=== PATIENT | female | born 1985 | race Caucasian/White ===

== ENCOUNTER 2017-12-15 15:06 | Day surgery (SDC) | payer OTHER ==
[2017-12-15 15:47] VITALS: BMI 30.4
[2017-12-15 15:55] VITALS: BP 127/80; TEMP 98.7
--- NOTE | 2017-12-15 16:43 | PDOC.LDHP ---
Labor and Delivery H&P Chief complaint: decreased movement HPI: 31 y/o at 34w4d, patient of Dr. Puckett, presents for decreased FM. Patient felt like her baby has been moving less today. 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 Denies VB, lof, ctx or other concerns. Since arrival to triage, has felt a lot of movement. ROS neg for HEENT, CV, pulm, GI, , neuro, psych, skin, musculoskeletal, or constitutional symptoms other than mentioned above. OB History Details: 1 prior term forceps vaginal delivery Current complications: none Past Medical History: None Current medications: pre-brenda vitamins Previous surgical history: none Allergies/Adverse Reactions: Allergies Allergy/AdvReac Type Severity Reaction Status Date / Time No Known Allergies Allergy Unverified 05/09/14 16:13 Social history: none - Physical Exam Vital signs reviewed and normal: yes General: NAD, resting Lungs: nonlabored breathing Abdomen: gravid Extremeties: no edema FHT: category 1 (150s, mod variability, + accels, no decels) Lead contractions every: None - Assessment 31 y/o at 34w4d with reassuring status and reactive NST. Now feeling movement. - Plan -: D/c home with precautions. Advised to keep all appointments.
== END 2017-12-15 16:27 | disposition home or self-care (01) ==
LOC: L&D/OP 15:06
PROVIDERS: ATTEND Obstetrics & Gynecology
DX: O36.8130 Decreased fetal movements, third trimester, not applicable or unspecified (principal); Z3A.34 34 weeks gestation of pregnancy
CPT/HCPCS: 59025; 99282

== ENCOUNTER 2018-01-17 21:00 | Inpatient (IN) | payer OTHER ==
[2018-01-17 21:58] VITALS: BMI 31.9
[2018-01-17] MEDS ORDERED: Ondansetron PF 4 MG/2 ML Vial IVP PRN (22:17)
[2018-01-17] MEDS ORDERED: Lactated Ringer's 1,000 ML IV PRN (22:17)
[2018-01-17] MEDS ORDERED: Butorphanol Tartrate 1 MG/ML VIAL SLOW IVP PRN (22:17)
[2018-01-17] MEDS ORDERED: Zolpidem Tartrate 5 MG TAB PO PRN (22:17)
[2018-01-17] MEDS ORDERED: Promethazine HCl 25 MG/ML VIAL IM PRN (22:17)
[2018-01-17] MEDS ORDERED: Misoprostol 100 MCG TAB VAG PRN (22:21)
[2018-01-17] MEDS: Lactated Ringer's 1,000 ML IV SCH (22:30)
[2018-01-17] MEDS ORDERED: NS w/ Oxytocin 10 units 500 ML IVPB SCH (22:30)
[2018-01-17] MEDS: Misoprostol 100 MCG TAB VAG SCH ×2 (22:55→22:56)
[2018-01-17 22:56] LABS: Hemoglobin 11.4 g/dL (12.0-16.0); Mean Corpuscular HGB CONC 32.2 g/dL (32.0-36.0); Mean Corpuscular Hemoglobin 26.3 pg (27.0-31.0); Mean Corpuscular Volume 81.9 fL (78.0-98.0); Mean Platelet Volume 9.4 fL (7.4-10.4); Platelet Count 219 thou/uL (130-400); RBC Distribution Width 14.4 % (11.5-14.5); Red Blood Cell (RBC) Count 4.33 mill/uL (4.20-5.40); White Blood Cell (WBC) Count 9.4 thou/uL (4.8-10.8)
[2018-01-17] MEDS ORDERED: Penicillin G Potassium 5 MILL.UNITS in Sodium Chloride 0.9% 100 ML IVPB SCH (23:00)
[2018-01-17 23:35] LABS: HBSAg Index 0.18 S/CO (0-0.99); Hep B Surf Ag Non-Reactive S/CO (NonReactive); Syphilis Antibody Nonreactive (Nonreactive); Syphilis Antibody Index 0.07 S/CO (<1.00 Non-Reactive)
--- NOTE | 2018-01-18 02:13 | PDOC.LDHP ---
Labor and Delivery H&P Chief complaint: scheduled induction Current gestational age (weeks): 39 Dating criteria: last menstrual period Grav: 2 Para: 1 Current complications: other ( pelvic kidney. Normal interval growth and MORIS checks.) Abnormal US findings: Yes ( pelvic kidney) Current medications: pre- vitamins Allergies/Adverse Reactions: Allergies Allergy/AdvReac Type Severity Reaction Status Date / Time No Known Allergies Allergy Verified 01/17/18 21:59 Social history: none - Physical Exam Vital signs reviewed and normal: yes General: resting Heart: RRR Lungs: nonlabored breathing Abdomen: gravid Extremeties: trace edema - Vaginal Exam cm dilated: 2 Effacement: 50% Station: -1 - OB Labs Blood type: A RH: positive Antibody Screen: negative HIV: negative RPR: negative HEPSAg: negative 1 hour GCT: negative GBS: positive Urine drug screen: not done Rubella: immune - Assessment L&D Assessment: elective induction at term - Plan Plan: admit to L&D, cervical ripening, labor augmentation if indicated, GBS antibiotic prophylaxis
[2018-01-18] MEDS ORDERED: Penicillin G Potassium 5 MILL.UNITS VIAL ONE (05:23)
[2018-01-18] MEDS ORDERED: Fentanyl 4 mcg/Bup 0.1% Cadd 100 ML ONE (08:45)
[2018-01-18] MEDS: Penicillin G 2.5 MILL.units 50 ML IVPB SCH ×4 (09:01→21:53)
[2018-01-18] MEDS ORDERED: Eucerin (Mineral Oil/Petrolatum,White) 30 gm Jar TOP PRN (10:48)
[2018-01-18] MEDS ORDERED: Naloxone HCl 0.4 mg/ml Vial IVP PRN ×2 (10:48)
[2018-01-18] MEDS ORDERED: Acetaminophen 325 MG TAB PO PRN (10:48)
[2018-01-18] MEDS ORDERED: Lactated Ringer's 500 ML IV PRN (10:48)
[2018-01-18] MEDS ORDERED: diphenhydrAMINE 50 MG/ML VIAL IVP PRN (10:48)
[2018-01-18] MEDS ORDERED: Promethazine HCl 25 MG/ML VIAL IM PRN (10:48)
[2018-01-18] MEDS ORDERED: Ondansetron PF 4 MG/2 ML Vial IVP PRN (10:48)
[2018-01-18] MEDS ORDERED: ePHEDrine/0.9% NaCl/PF SYRINGE 50 mg/10 ml SLOW IVP PRN (10:48)
[2018-01-18] MEDS ORDERED: Fentanyl 4 mcg/Bupivacaine 0.1% Cassette 100 ML EPIDURAL SCH (11:00)
[2018-01-18] MEDS ORDERED: Communication Order-Pharmacy FS SCH (11:00)
[2018-01-18] MEDS: Lactated Ringer's 1,000 ML IV SCH ×3 (11:00→22:37)
[2018-01-18] MEDS ORDERED: Bupivacaine/Epinephrine 0.25% 30 ML VIAL ONE (11:11)
[2018-01-18] MEDS ORDERED: NS / Oxytocin 40 units/1000ml 1,000 ML ONE (11:38)
[2018-01-18] MEDS ORDERED: Lidocaine 1% (PF) 30 ML VIAL ONE (11:38)
[2018-01-18] MEDS: NS / Oxytocin 40 units/1000ml 1,000 ML IV SCH ×2 (13:18→14:33)
[2018-01-18] MEDS ORDERED: Milk Of Magnesia 30 ML UDCUP PO PRN (13:25)
[2018-01-18] MEDS ORDERED: Benzocaine/Menthol 20-0.5% 60 ML CAN TOP PRN (13:25)
[2018-01-18] MEDS ORDERED: diphenhydrAMINE 25 MG CAP PO PRN (13:25)
[2018-01-18] MEDS ORDERED: Bisacodyl 10 MG SUPP PR PRN (13:25)
[2018-01-18] MEDS ORDERED: Misoprostol 200 MCG TAB VAG PRN (13:25)
[2018-01-18] MEDS ORDERED: traMADol HCl 50 MG TAB PO PRN ×2 (13:25)
[2018-01-18] MEDS ORDERED: Lanolin Ointment 7 GM TUBE TOP PRN (13:25)
[2018-01-18] MEDS ORDERED: Adacel (T-DAP) 0.5 ML VIAL IM ONE (13:25)
--- NOTE | 2018-01-18 13:28 | PDOC.OPDEL ---
OB Operative/Delivery Note Delivery Dr/Surgeon: Italo Pre-Delivery Diagnosis: elective induction Procedure/Post Delivery Dx: operative vaginal delivery Weeks gestation: 39 Anesthesia: epidural - Findings A Sex: male - 1 min: 8 - 5 min: 9 - Additional Findings/Plan Placenta delivered: spontaneous Repaired Obstetrical Laceration: 2nd degree (Outlet forcep asssited vaginal delivery for non reassuring heart rate tracing. loose nuchal cord x 1 reduced.[place] vigorius and moves all extremities and facies bilaterally symmentric.)
[2018-01-18] MEDS: Ferrous Sulfate 325 MG TAB PO SCH (17:18)
[2018-01-18] MEDS: Ibuprofen 800 MG TAB PO SCH (17:31)
[2018-01-18] MEDS: Docusate Calcium (SURFAK) 240 MG CAP PO SCH (21:47)
[2018-01-19] MEDS: Ibuprofen 800 MG TAB PO SCH ×3 (02:01→10:13)
[2018-01-19] MEDS: Penicillin G 2.5 MILL.units 50 ML IVPB SCH ×2 (02:02→06:06)
--- NOTE | 2018-01-19 08:31 | PDOC.PP ---
Post Progress Note Post Day #: 1 PO intake tolerated: yes Flatus: yes Vital Signs (12 hours) Temp Pulse Resp BP Pulse Ox 01/19/18 06:05 98.3 F 80 18 115/60 98 01/19/18 01:58 97.6 F 80 18 110/59 L Weight Weight 198 lb - Physical Examination Abdominal: + bowel sounds, lochia, no distention, appropriately TTP Extremities: negative homans (B) Result Diagrams: 01/17/18 22:40 Additional Labs: Post Labs Blood Type A POSITIVE 01/17/18 22:40 Hep Bs Antigen Non-Reactive S/CO (NonReactive) 01/17/18 22:40 - Assessment/Plan doing well. July d/c home if baby released. F/u in 6 weeks.
[2018-01-19] MEDS ORDERED: Pen G 2.5 MILL.UNITS/50 ML BAG ONE (09:00)
[2018-01-19] MEDS ORDERED: Prenatal Vitamin 1 TAB PO SCH (09:00)
[2018-01-19] MEDS: Docusate Calcium (SURFAK) 240 MG CAP PO SCH (09:38)
[2018-01-19] MEDS: Ferrous Sulfate 325 MG TAB PO SCH (09:39)
[2018-01-19 10:05] VITALS: BP 122/67; TEMP 99.1
== END 2018-01-19 16:25 | disposition home or self-care (01) | DRG 806 ==
LOC: L&D 21:33 → 3SW 01-18 15:59
PROVIDERS: ADMIT Obstetrics & Gynecology; ATTEND Obstetrics & Gynecology
PROC: 10E0XZZ Delivery of Products of Conception, External Approach (ICD-10-PCS; principal; 2018-01-18)
PROC: 0KQM0ZZ Repair Perineum Muscle, Open Approach (ICD-10-PCS; 2018-01-18)
PROC: 10907ZC Drainage of Amniotic Fluid, Therapeutic from Products of Conception, Via Natural or Artificial Opening (ICD-10-PCS; 2018-01-18)
PROC: 3E033VJ Introduction of Other Hormone into Peripheral Vein, Percutaneous Approach (ICD-10-PCS; 2018-01-18)
DX: O70.1 Second degree perineal laceration during delivery (principal); O98.82 Other maternal infectious and parasitic diseases complicating childbirth; Z37.0 Single live birth; Z3A.39 39 weeks gestation of pregnancy; O69.81X0 Labor and delivery complicated by cord around neck, without compression, not applicable or unspecified; B95.1 Streptococcus, group B, as the cause of diseases classified elsewhere
CPT/HCPCS: 51702; 85027; 86780; 86850; 86900; 86901; 87340; 90715; J2001; J2540